=== PATIENT | female | born 1955 | race Caucasian/White ===

== ENCOUNTER → 2016-07-05 | Outpatient (CLI) | payer OTHER ==
--- NOTE | 2016-07-05 16:27 | MA ---
Screening Digital Mammogram With iCAD Analysis Clinical Indications: Routine screening. The patient has had reduction mammoplasty. Technique: Standard cephalocaudal projections are obtained. Digital breast tomosynthesis was performe d in the MLO projection with reconstruction at 1.0 mm slice thickness and composite MLO views reconst ructed. This examination is processed by the iCAD computer aided detection system. Comparison: July 2014, July 2013, June 2012, May 2011, April 2011, October 2010, April 28, March 2009. Breast density: Type B; Scattered fibroglandular densities. Findings: CAD was reviewed. No masses, suspicious calcifications or secondary signs of malignancy are seen. There has been no significant change in the appearance of either breast. Impression: Negative mammogram. BI-RADS 1. Recommendation: Routine mammographic screening in one year as long as physical examination is negativ [facility]. Negative mammography should not preclude additional workup of a clinically suspicious finding. The patient's information is entered into a reminder system with a target due date for her next mammo gram.
== END ==
LOC: FIMAGING 10:57
DX: Z12.31 Encounter for screening mammogram for malignant neoplasm of breast (principal)
CPT/HCPCS: G0202

== ENCOUNTER 2016-09-23 10:00 | Emergency (ER) | payer OTHER ==
[2016-09-23 10:06] VITALS: PULSE 78
--- NOTE | 2016-09-23 10:09 | EDPHY ---
H & P Stated Complaint: PT concerned for "swollen" tip of R pointer finger, ?FB since yesterday Time Seen by Provider: 09/23/16 10:08 - Personal History Current Tetanus/Diphtheria Vaccine: Yes Current Tetanus Diphtheria and Acellular Pertussis (TDAP): Yes - Medical/Surgical History Hx Asthma: No Hx Chronic Respiratory Disease: No Hx Diabetes: No Hx Cardiac Disease: No Hx Renal Disease: No Hx Cirrhosis: No Hx Alcoholism: No Hx HIV/AIDS: No Hx Splenectomy or Spleen Trauma: No Other PMH: denies PMH. ortho surgery L foot - Social History Smoking Status: Never smoked Constitutional: Initial Vital Signs Temperature (C) 36.7 C 09/23/16 10:03 Heart Rate 78 09/23/16 10:03 Respiratory Rate 15 09/23/16 10:03 Blood Pressure 125/81 H 09/23/16 10:03 O2 Sat (%) 98 09/23/16 10:03 O2 Delivery Mode Room Air Allergies/Adverse Reactions: No Known Allergies Allergy (Unverified 04/12/14 15:50) Home Medications: Medication Instructions Recorded Estradiol [Estradiol 1 MG (*)] 1 mg PO HS 04/12/14 Progesterone,Micronized 100 mg PO HS 04/12/14 [Prometrium] QUEtiapine FUMARATE [Seroquel 50 100 - 150 mg PO HS 04/12/14 mg (*)] Ondansetron Odt [Zofran Odt 4 mg 4 mg PO Q4 PRN #5 tab 04/13/14 (*)] Medical Decision Making ED Course/Re-evaluation: CHIEF COMPLAINT: Right index finger swelling. HISTORY OF PRESENT ILLNESS: The patient is a 61-year-old female who presents with right index fingertip swelling that she first noticed yesterday. She has the sensation of a foreign body but denies trauma or puncture. She denies fever , vomiting, recent sickness. REVIEW OF SYSTEMS: A 10 point review of systems was performed and is negative with the exception of the elements mentioned in the history of present illness. PHYSICAL EXAM: HR, BP, O2 Sat, RR. Temp noted General Appearance: Alert, well hydrated, appropriate, and non-toxic appearing. Head: Atraumatic without scalp tenderness or obvious injury Musculoskeletal: Normal active ROM of all extremities, atraumatic. Right index fingertip paronychia. Neurological: Alert, appropriate, and interactive. The patient has normal DTRs and non-focal cranial nerves, motor, sensory, and cerebellar exam. Skin: No rashes, good turgor, no nodules on palpation. Past medical history: Denies. Past surgical history: Orthopedic. Family history: N/A. Social history: Here alone. DIFFERENTIAL DIAGNOSIS: Differential diagnosis includes, but is not limited to: cellulitis, paronychia, abscess. MEDICAL DECISION MAKIN-year-old female presents with right fingertip swelling. On exam she clearly has a paronychia. She has no associated symptoms. She is safe to go home on Keflex. She is comfortable with this plan. Departure - Departure Disposition: Home, Routine, Self-Care Clinical Impression: Paronychia Qualifiers: Laterality: right Qualified Code(s): L03.011 - Cellulitis of right finger Condition: Good Instructions: Paronychia (ED) Additional Instructions: Take Keflex as prescribed. Return for any serious worsening of condition. Referrals: Marychuy Beaver MD [Primary Care Provider] - As per Instructions Report Scribed for: Marko Holly Report Scribed by: Jc Kenney Date of Report: 09/23/16 Time of Report: 10:12
[2016-09-23 10:23] VITALS: BP 126/89; RESP 14; TEMP 98.4; O2SAT 95
== END 2016-09-23 10:23 | disposition home or self-care (01) ==
DX: L03.011 Cellulitis of right finger (principal)

== ENCOUNTER → 2017-07-09 | Outpatient (CLI) | payer OTHER | LOC: FIMAGING 13:25 | PROVIDERS: ATTEND Internal Medicine | DX: Z12.31 Encounter for screening mammogram for malignant neoplasm of breast (principal) ==

== ENCOUNTER → 2018-07-10 | Outpatient (CLI) | payer OTHER | LOC: FIMAGING 13:18 | PROVIDERS: ATTEND Internal Medicine | DX: Z12.31 Encounter for screening mammogram for malignant neoplasm of breast (principal) ==

== ENCOUNTER → 2018-10-31 | Outpatient (CLI) | payer OTHER | LOC: FIMAGING 11:53 ==